=== PATIENT | male | born 2000 | race Asian ===

== ENCOUNTER 2024-01-22 07:33 | Day surgery (SDC) | payer BC, SELFPAY ==
[2024-01-22] VITALS (11 sets, daily range): BP systolic 98–139; BP diastolic 50–71; PULSE 59–79; RESP 12–16; TEMP 36.4–37.1; O2SAT 96–100; BMI 25.8
--- NOTE | 2024-01-22 08:17 | W.PM.H&PU ---
History & Physical Update History & Physical Update H&P Reviewed and patient assessed: No changes noted
[2024-01-22] MEDS: LACTATED RINGERS 1000 ML 1,000 ML 100 ML IV (08:37)
[2024-01-22] MEDS: CEFAZOLIN 2 GM in 0.9 % SODIUM CHLORIDE Mini-bag 100 ML IVPB (09:40)
[2024-01-22] MEDS: ROPIVACAINE 0.5% 30 ML 150 MG INJECTION (10:25)
--- NOTE | 2024-01-22 10:41 | W.ANESCHARGE ---
Anesthesia Charges Start Date/Time Anesthesia Start Date: 01/22/24 Anesthesia Start Time: 09:26 Stop Date/Time Anesthesia Stop Date: 01/22/24 Anesthesia Stop Time: 10:41
--- NOTE | 2024-01-22 10:51 | P.ORPRC_ITS ---
Procedure Note Date of procedure: 01/22/24 Procedure: PREOPERATIVE DIAGNOSIS: 1. Left knee lateral meniscus tear POSTOPERATIVE DIAGNOSIS: 1. Left knee lateral meniscus tear PROCEDURE: 1. Left knee arthroscopic partial lateral meniscectomy SURGEON: Darnell Wiseman M.D. VOCATIONAL REHABILITATION ADMINISTRATOR: Kobi Arrington PA-C. Of note, an kitchen assistant was critical for this case to aid in patient positioning, knee manipulation, instrument exchange, and closure. ANESTHESIA: Spinal EBL: 10 mL TOURNIQUET: 30 min at 300 torr COMPLICATIONS: None evident INDICATIONS: The patient is a pleasant 23-year-old male who has experienced left knee pain particularly with any twisting or turning. He reports left knee spontaneous pain development while running from 02/2023. This continued intermittently bother him since. Physical exam was concerning for medial meniscus tear, this was confirmed on MRI. Additionally, attempted nonoperative management has been tried, and failed. Thus, surgery was recommended. FINDINGS: Complex tearing of the posterior horn to midbody lateral meniscus. A flap was seen and displaced into the posterior inferior gutter. When this was reduced, it had a crease in it that prompted to return back to that displaced position. The posterior root was intact. Anterior horn and anterior root were intact. Meniscal hoop stress was maintained with the intact meniscus tissue. DESCRIPTION OF PROCEDURE: After a thorough discussion of risks, benefits, and alternatives, the patient was brought to the operating room and placed upon the operating table. Induction of anesthesia was undertaken as previously noted. 2g iv Ancef was administered within 1 hr of incision preoperatively. Appropriate time-out was performed identifying proper patient, site, and procedure. The left lower extremity was prepped and draped in the appropriate sterile fashion using ChloraPrep. The limb was exsanguinated and tourniquet inflated. Anterolateral and anteromedial portals were established with an 11 blade, and a diagnostic arthroscopy was performed. This identified the findings as noted above. Following the diagnostic arthroscopy, a partial lateral menisectomy was performed with the combination of basket forceps and a motorized shaver. Follo wing this, the meniscus was re-probed and found to be stable. Approximately 35- 40 % of the overall meniscus required resection. At this stage, the shaver was reinserted into the suprapatellar pouch and all remaining meniscal debris was evacuated. Instruments were removed, excess fluid was drained, and closure performed with 4-0 Monocryl with Steri-Strips. Dressings were applied, the tourniquet deflated, and the patient was awoken from anesthesia and transferred to the PACU in stable condition. PLAN: 1. Weightbear as tolerated operative extremity. Crutch / walker ambulation assistance PRN. Straight leg raise to be initiated starting tomorrow by the patient. 2. Ice, acetominophen and/or ibuprofen, and oxycodone for pain as needed. 3. Knee range of motion and quad sets/straight leg raise regularly 4. Follow up with PA visit in 7-10 days. for a wound check. Initiate physical therapy at that time
--- NOTE | 2024-01-22 11:15 | SUR.PHASEI ---
patient met pacu d/c criteria
--- NOTE | 2024-01-22 12:58 | SUR.PHASEII ---
Nathan, PT in to see patient for crutch training. Patient denies pain and states he feels he doesn't need crutches. PT recommends patient to use 1 crutch when walking distances, i.e., across campus to class. Patient verbalizes understanding.
== END 2024-01-22 12:59 | disposition home or self-care (01) ==
PROVIDERS: PCP Family Medicine; Visit Provider Orthopaedic Surgery Sports Medicine
PROC: (CPT 29870; principal; 2024-01-22 09:15)
DX: S83.272A Complex tear of lateral meniscus, current injury, left knee, initial encounter (principal)
CPT/HCPCS: 29881; 1400; 97161; J0690; J1100; J2250; J2405; J2704; J2795; J3010; J7120

== ENCOUNTER 2024-03-26 16:00 | Outpatient (RCR) | payer BC, SELFPAY | END 2024-03-26 16:51 | disposition home or self-care (01) | PROVIDERS: PCP Family Medicine; Visit Provider Physician Assistant Surgical | DX: Z98.890 Other specified postprocedural states (principal); Z51.89 Encounter for other specified aftercare | CPT/HCPCS: 97110; 97140; 97161 ==